=== PATIENT | male | born 1975 | race African-American/Black ===

== ENCOUNTER 2020-01-20 19:42 | Emergency (ER) | payer BC, SELFPAY ==
--- NOTE | ~2020-01-20 | XR_ITS ---
EXAMINATION: XR chest 1V portable DATE: 01/20/2020 20:10 INDICATION: COVID 19. Shortness of breath. TECHNIQUE: frontal view of the chest was obtained. COMPARISON: None FINDINGS: Horizontal band of opacity projecting across the elevated right hemidiaphragm. The bandlike configura tion and associated volume loss favors atelectasis. Additional less well-defined mild airspace opacit ies at the left lung base. No pulmonary edema, pleural effusion or pneumothorax. The cardiomediastina l silhouette is normal. Visualized bones and soft tissues are unremarkable. IMPRESSION: 1. Opacities at the bilateral lung bases which could represent atelectasis or pneumonia. Reviewed, dictated and finalized at location . ING INFORMATICS ANALYST IMPRESSION: 1. Opacities at the bilateral lung bases which could represent atelectasis or p neumonia.
--- NOTE | ~2020-01-20 | CT_ITS ---
EXAMINATION: CTA chest PE protocol DATE: 01/20/2020 20:46 INDICATION: Dyspnea TECHNIQUE: Computed tomography (CT) pulmonary angiogram of the chest was performed with 100 mL Omnipa que-350 intravenous contrast. Additional 3D reconstructions utilizing coronal maximum intensity proje ction (MIP) were performed. Automated exposure control and iterative reconstruction technique were em ployed. The dose-length product was 455.52 mGy-cm. COMPARISON: None FINDINGS: Good contrast opacification of the pulmonary arteries. There is moderate streak artifact from dense c ontrast in the superior vena cava and right atrium. Moderate scattered respiratory motion artifact. T he combination of streak and motion artifact decreases sensitivity in the segmental and more signific antly subsegmental pulmonary arteries and rendered is assessment in many of the subsegmental pulmonar y arteries in the lower lungs essentially nondiagnostic. No definitive pulmonary emboli. There are predominantly bandlike and mild associated groundglass opacities in the dependent and basil ar aspects of both lungs with architectural distortion and bronchovascular crowding concerning corres ponding volume loss consistent with atelectasis/scarring. Although this could be secondary to prior p neumonia or pulmonary infarcts in the regions of consolidation to demonstrate enhancement which would argue against infarct. Mild elevation of the right hemidiaphragm. No pulmonary edema, pleural effusi on or pneumothorax. Mild emphysema at the upper lung zones. Borderline heart size. No pericardial effusion. Thoracic aorta is normal in caliber with no dissectio n. Mild likely reactive bilateral hilar and mediastinal lymphadenopathy. Subtle soft tissue density i nterspersed among the fat in a triangular region of the anterior mediastinum without discrete solid n odule consistent with thymic tissue in the setting of rebound thymic hyperplasia. Visualized upper ab domen and bones are unremarkable. IMPRESSION: 1. No definitive pulmonary emboli. Sensitivity is decreased in some of the segmental and subsegmental pulmonary arteries and essentially nondiagnostic in some of the subsegmental pulmonary arteries at t he lung bases due to combination of moderate streak and moderate respiratory motion artifact. 2. Regions of peripheral and basilar predominant groundglass opacity and consolidation, bladder with bandlike configurations with architectural distortion demonstrating associative volume loss which wou ld favor atelectasis/scarring although this could be superimposed over or secondary to pneumonia or l ess likely pulmonary infarcts. 3. Mild emphysema. 4. Borderline heart size. 5. Mild bilateral hilar and mediastinal lymphadenopathy which is likely reactive. 6. Increased thymic tissue in the anterior mediastinum suggesting rebound thymic hyperplasia. Reviewed, dictated and finalized at location H. CTOR HEDIS IMPRESSION: 1. No definitive pulmonary emboli. Sensitivity is decreased in some of the segm ental and subsegmental pulmonary arteries and essentially nondiagnostic in some of the subsegmental pulmonary arteries at the lung bases due to combination of moderate streak and moderate respiratory motion artifact. 2. Regions of peripheral and basilar predominant groundglass opacity and consol idation, bladder with bandlike configurations with architectural distortion dem onstrating associative volume loss which would favor atelectasis/scarring altho ugh this could be superimposed over or secondary to pneumonia or less likely pu lmonary infarcts. 3. Mild emphysema. 4. Borderline heart size. 5. Mild bilateral hilar and mediastinal lymphadenopathy which is likely reactiv e. 6. Increased thymic tissue in the anterior mediastinum suggesting rebo
[2020-01-20 19:50] VITALS: BP 128/77; PULSE 81; RESP 27; TEMP 36.6; O2SAT 95
--- NOTE | 2020-01-20 19:53 | ECG_ITS ---
Measurements Intervals Edison Rate: 81 P: 40 VT: 141 QRS: -29 QRSD: 98 T: -25 QT: 367 QTc: 428 Interpretive Statements SINUS RHYTHM BORDERLINE R WAVE PROGRESSION, ANTERIOR LEADS NONSPECIFIC T-WAVE ABNORMALITY- ANT/INF LEADS BASELINE ARTIFACT- V1, V5-V6 BORDERLINE ECG Electronically Signed On 01-21-2020 7:22:47 JEWEL DIAMETER GAUGER by Gerber Toth D.O.
--- NOTE | 2020-01-20 19:59 | ED.GENADULT ---
HPI - General Adult General Chief complaint: Upper Respiratory Infection Stated complaint: Covid +, worsening shortness of breath Time Seen by Provider: 01/20/20 19:49 Source: RN notes reviewed History of Present Illness HPI narrative: Patient presents to emergency department from home for shortness of breath. Patient states that he was diagnosed with COVID-19 on 01/10/2020 states he has had progressive shortness of breath that are worsened today. States he has been having a cough he denies any fevers or chills chest pain abdominal pain nausea vomiting or any other symptoms Related Data Allergies Allergy/AdvReac Type Severity Reaction Status Date / Time No Known Allergies Allergy Verified 01/20/20 20:12 Review of Systems Review of Systems: Narrative: Gen.: Denies fevers or chills Eyes: Denies eye pain or visual change ENT: Denies congestion Respiratory: Reports shortness of breath CV: Denies chest pain or palpitations GI: Denies abdominal pain nausea, emesis or diarrhea denies burning, urgency, frequency or hematuria Musculoskeletal: Denies back pain or muscle pain Neuro: Denies numbness, tingling, weakness or focal weakness reports headache Skin: Denies rash Except as documented, all other systems reviewed and negative PMFSH Past Medical History Medical History (Updated 01/20/20 @ 22:45 by Carlos Das DO) Patient denies significant medical history Social History Social History (Updated 01/20/20 @ 20:00 by Carlos Das DO) Smoking status: Never smoker Exam Narrative: Exam Narrative: APPEARANCE: No acute distress, nontoxic, resting in bed EYES: EOMI HEENT: Normocephalic, atraumatic, OMM RESPIRATORY: No respiratory distress Clear to auscultation bilaterally with no rhonchi wheezing or rales. CARDIOVASCULAR: Regular rate and rhythm without murmurs rubs or gallops. ABDOMINAL: Soft, nontender, nondistended, no rebound or guarding MUSCULOSKELETAl: Moves all extremities. No clubbing, cyanosis or edema. NEURO: Awake and alert. Following commands, speech normal, no focal deficits SKIN:: Warm, dry. No rashes lesions or abrasions PSYCHIATRIC: Normal affect/mood, Course Course Emergency Course: Patient states breathing is improved following albuterol patient's oxygen has remained in the upper 90s throughout stay in ED on room air Discussed with patient results of workup and diagnosis. Discussed need for follow-up with primary care, proper use of medication, and reasons to return to the emergency department. Patient understands and agrees to current treatment plan Vital Signs Vital signs: Vital Signs Temperature 97.8 F 01/20/20 19:50 Pulse Rate 81 01/20/20 19:50 Respiratory Rate 27 H 01/20/20 19:50 Blood Pressure 128/77 01/20/20 19:50 Pulse Oximetry 95 01/20/20 19:50 Temperature 97.8 F 01/20/20 19:50 Pulse Rate 73 01/20/20 21:51 Respiratory Rate 20 01/20/20 21:51 Blood Pressure 118/77 01/20/20 21:51 Pulse Oximetry 97 01/20/20 21:51 Medical Decision Making Vital Signs Vital Signs: Vital Signs Temperature 97.8 F 01/20/20 19:50 Pulse Rate 81 01/20/20 19:50 Respiratory Rate 27 H 01/20/20 19:50 Blood Pressure 128/77 01/20/20 19:50 Pulse Oximetry 95 01/20/20 19:50 Temperature 97.8 F 01/20/20 19:50 Pulse Rate 73 01/20/20 21:51 Respiratory Rate 20 01/20/20 21:51 Blood Pressure 118/77 01/20/20 21:51 Pulse Oximetry 97 01/20/20 21:51 Lab Data Result diagrams: 01/20/20 19:57 01/20/20 19:59 Labs: Lab Results 01/20/20 01/20/20 01/20/20 Range/Units 19:56 19:57 19:57 WBC 5.9 (4.5-10.0) K/mm3 RBC 4.78 (4.6-6.20) M/mm3 Hgb 14.3 (14.0-18.0) g/dL Hct 42.8 (42.0-52.0) % MCV 89.5 (80-100) fl MCH 29.9 (26-34) pg MCHC 33.4 (32-36) g/dl RDW 11.4 L (11.5-14.5) % Plt Count 285 (150-375) k/mm3 MPV 9.8 (7.4-10.4) fl Immature Gran % (Auto) Not Reportable
[2020-01-20 20:09] LABS: Hematocrit 42.8 % (42.0-52.0); Hemoglobin 14.3 g/dL (14.0-18.0); Mean Corpuscular HGB Conc 33.4 g/dl (32-36); Mean Corpuscular Hemoglobin 29.9 pg (26-34); Mean Corpuscular Volume 89.5 fl (80-100); Mean Platelet Volume 9.8 fl (7.4-10.4); Platelet Count Result 285 k/mm3 (150-375); Red Blood Count 4.78 M/mm3 (4.6-6.20); Red Cell Distribution Width 11.4 % (11.5-14.5); White Blood Count 5.9 K/mm3 (4.5-10.0)
[2020-01-20] MEDS: ALBUTEROL SULFATE (*SP) AEROSOL 1 PUFF 2 PUFF INHALATION (20:14)
[2020-01-20 20:16] VITALS: BP 123/92; PULSE 85; PULSE 86; RESP 22; O2SAT 95
[2020-01-20 20:21] LABS: Lactic Acid Reflex 1.4 mmol/L (0.7-2.1)
[2020-01-20 20:22] LABS: Anion Gap 10 mmol/L (8-16); Blood Urea Nitrogen 15 mg/dL (9-20); Calcium 9.7 mg/dL (8.4-10.2); Carbon Dioxide 33 mmol/L (22-30); Chloride 95 mmol/L (98-107); Estimated Glomerular Filt Rate > 60; Glucose 131 mg/dL (75-110); Potassium 3.9 mmol/L (3.4-5.0); Sodium 138 mmol/L (137-145)
[2020-01-20 20:23] LABS: D Dimer 1.41 ug/mL (<0.48)
[2020-01-20 20:31] LABS: Band Neutrophils Percent 1 % (0-6); Eosinophils Absolute Manual 0.11 K/mm3 (0.02-0.5); Eosinophils Percent Manual 2 % (0-4); Lymphocytes Absolute Manual 2.18 K/mm3 (1.1-4.5); Monocytes Absolute Manual 0.76 K/mm3 (0.1-0.90); Monocytes Percent Manual 13 % (3-9); Neutrophils Absolute Manual 2.83 K/mm3 (1.3-6.7); Neutrophils Percent Manual 47 % (46-73); Platelet Estimate Adequate (Adequate); Total Cells Counted 100
[2020-01-20 21:51] VITALS: BP 118/77; PULSE 73; RESP 20; O2SAT 97
[2020-01-20] MEDS: AZITHROMYCIN 250 MG TABLET 500 MG PO (22:03)
--- NOTE | 2020-01-20 22:09 | PC.NURSE ---
this rn spoke to donny, pts , and updated her on pt status.
[2020-01-20 22:58] VITALS: BP 124/81; PULSE 77; RESP 16; O2SAT 97
== END 2020-01-20 23:00 | disposition home or self-care (01) ==
PROVIDERS: Emergency Provider Emergency Medicine
DX: U07.1 COVID-19 (principal); R94.31 Abnormal electrocardiogram [ECG] [EKG]; R91.8 Other nonspecific abnormal finding of lung field; J43.9 Emphysema, unspecified
CPT/HCPCS: 36415; 71045; 71275; 80048; 83605; 85025; 85380; 87040; 93005; 94640; 96374; 99284; A9270; J0131; Q9967

== ENCOUNTER 2022-08-17 09:51 | Outpatient (CLI) | payer BC, SELFPAY | END 2022-08-17 09:52 | disposition home or self-care (01) | LOC: ANHAUDIO 09:52 | PROVIDERS: PCP Family Medicine Adolescent Medicine; Visit Provider Emergency Medicine | DX: Z01.10 Encounter for examination of ears and hearing without abnormal findings (principal) | CPT/HCPCS: 92552; 92556; 92567 ==

== ENCOUNTER 2023-12-28 10:49 | Outpatient (CLI) | payer BC, SELFPAY ==
--- NOTE | ~2023-12-28 | US_ITS ---
Limited Abdominal Sonogram: Real-time sonographic imaging of the right upper quadrant was performed. Clinical History: Elevated liver enzymes Findings: The liver appears normal with no evidence of mass lesion or bile duct dilatation. Main por laura vein demonstrates normal direction of flow. The gallbladder is well distended, and appears normal with no evidence of gallstone or wall thickening. The common bile duct measures 3 mm. The visualize d pancreas, aorta, and IVC are unremarkable. Impression: No significant abnormality seen. Reviewed, dictated and finalized at location M. Impression: No significant abnormality seen.
== END 2023-12-28 10:50 | disposition home or self-care (01) ==
PROVIDERS: PCP Emergency Medicine; Visit Provider Emergency Medicine
DX: R74.8 Abnormal levels of other serum enzymes (principal)
CPT/HCPCS: 76705

== ENCOUNTER 2024-09-03 14:27 | Outpatient (CLI) | payer BC, SELFPAY ==
--- NOTE | ~2024-09-03 | XR_ITS ---
Cervical Spine: AP, lateral, open-mouth views Clinical History: Pain Findings: The normal lordotic curve is maintained. The vertebral bodies and posterior elements appea r intact. There is mild degenerative disc narrowing at C5-C6 and C6-C7. There is mild facet arthropat hy in the cervical spine. Pre-vertebral soft tissues are unremarkable. Impression: Mild degenerative spondylitic changes, as above. Reviewed, dictated and finalized at location . Impression: Mild degenerative spondylitic changes, as above.
--- OUTSIDE RECORDS SUMMARY | 2024-09-03 14:33 | XMS_ITS | Clinical Summary ---
Author Organization [facility] Address [address] [place] [address] Phone Care Team Providers Care Stock Speculator Name Role Phone Thom Romero MD Unavailable Allergies No known active allergies Medications terbinafine (LamISIL) 1 % Cream Apply 2 times daily. 30 g 1 Active Additional Information Patient not taking.Reported on 07/02/2021 Cyanocobalamin (VITAMIN B12 PO) Take by mouth daily. Active KRILL OIL PO Take by mouth daily. Active Active Problems No known active problems Immunizations Immunization Administration Dates Next Due TDAP Vaccine 06/09/2021,05/07/2020 Family History Medical History Relation Name Comments No Known Problems Daughter Heart Disease Father Other-comment Father Heart preblems Rheumatoid Arthritis Father No Known Problems Half-Brother 1 No Known Problems Half-Brother 2 No Known Problems Half-Brother 3 No Known Problems Half-Brother 4 No Known Problems Half-Brother 5 No Known Problems Half-Brother 6 Rheumatoid Arthritis Half-Brother 7 Lupus Half-Sister 1 No Known Problems Half-Sister 2 Neuropathy Maternal Grandfather Chronic Obstructive Pulmonary Disease Maternal Grandmo ther Heart Disease Maternal Grandmother Breast Cancer Mother Chronic Obstructive Pulmonary Disease Mother Heart Attack Paternal Grandfather Heart Attack Paternal Grandmother Rheumatoid Arthritis Paternal Grandmother No Known Problems Son 1 No Known Problems Son 2 Relation Name Status Comments Daughter Alive Father Alive Half-Brother 1 Alive Half-Brother 2 Alive Half-Brother 3 Alive Half-Brother 4 Alive Half-Brother 5 Alive Half-Brother 6 Alive Half-Brother 7 Alive Half-Sister 1 Alive Half-Sister 2 Alive Maternal Grandfather Maternal Grandmother Mother Alive Paternal Grandfather Paternal Grandmother Alive Son 1 Alive Son 2 Alive Social History Tobacco Use Types Packs/Day Years Used Date Smoking Tobacco: Former Cigarettes 0.5 20.3 1 993 - 07/02/2012 Smokeless Tobacco: Never Tobacco Cessation:Counseling Given: No Alcohol Use Standard Drinks/Week Comments Yes 0 (1 standard drink = 0.6 oz pur e alcohol) weekends PHQ-2 Answer Date Recorded Total Score - Questions 1-9 0 05/29 Sexually Active Control Partners Comments Yes Female Sex and Gender Information Value Date Recorded Sex Assigned at Not on file Legal 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 Gender Identity Not on file Sexual Orientation Not on file 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 Not on file Not on file Last Filed Vital Signs Vital Sign Reading Time Taken Comments Blood Pressure 133/73 08/17/2021 5:40 PM CDT Pulse 67 08/17/2021 5:40 PM CDT Temperature 36.6 C (97.8 F) 08/17/2021 5:40 PM CDT Respiratory Rate 20 08/17/2021 5:40 PM CDT Oxygen Saturation 98% 08/17/2021 5:40 PM CDT Inhaled Oxygen Concentration - - Weight 91.2 kg (201 lb) 08/17/2021 5:40 PM CDT Height 167.6 cm (5' 6) 08/17/2021 5:40 PM CDT Body Mass Index 32.44 08/17/2021 5:40 PM CDT Plan of Treatment Health Maintenance Due Date Last Done Comments Hepatitis C Virus (HCV) Screening 1976 Hepatitis B Immunization (1 of + 3-dose series) 1995 SARS-COV-2 Immunization ( season) 2023 06/12/2020, 05/15/2020 Influenza Immunization (Season Ended) 2024 Colonoscopy 07/17/2031 07/16/2021, 06/28, 07/16/2021, Additional history exists Colorectal Cancer Screening 07/17/2031 Respiratory Syncytial Virus (RSV) Immunization (Adult) (1 - 1-dose 75+ series) 2051 DTaP/Tdap/Td Immunization Discontinued 06/09/2021, 11/2020 Human Papillomavirus (HPV) Immunization Aged Out No longer eligible based on patient's age to complete this topic Meningococcal Immunization (ACWY) Aged Out No longer eligible based on patient's age to complete this topic Pneumococcal Immunization Combined Aged Out No longer eligible based on patient's age to complete this topic Rotavirus Immunization Aged Out No lo nger eligible based on patient's age to complete this topic Insurance [facility] [employer] [place] [id number] Care Teams Stock Speculator Relationship Specialty Start Date End Date Thom Romero MD [address] [place] [address] Consulting Physician Colon and Rectal Surgery 07/02/21
--- OUTSIDE RECORDS SUMMARY | 2024-09-03 14:33 | XMS_ITS | Patient Health Record ---
Author Organization [facility] Address [address] [place] [address] Care Team Providers Care Lead Loader Name Role Phone Isai Barney Primary Care Provider [phone] Reason For Referral No Information Immunizations Vaccine Route Administration Date Status Comme nts COVID-19 Moderna 1ST IM Intramuscular 05/15/2020 Administe red COVID-19 Moderna 2nd IM Intramuscular 06/12/2020 Administe red Plan Of Treatment No Information Insurance Providers Payer Name Payer Address Payer Phone Subscriber Number Group Number Insured Name Patient Relationship to Insured Coverage Start Date Coverage End Date [facility] [place] [address] [place] [address] [phone] [id number] Isai Kay Self - patient is the insured 1
--- OUTSIDE RECORDS SUMMARY | 2024-09-03 14:33 | XMS_ITS | Clinical Summary ---
Author Organization [facility] Address [address] [facility] [facility] [place] [address] Care Team Providers Care Emergency Room Doctor Name Role Phone Austin Arreola MD Primary Care Provider [phone] Source Comments [facility],non-owned Affiliates and Associated Physician Practices is amultiple site organization consisting of ambulatory clinics and hospital sitesin [place], [place], [place] and [place]. This disclosure is being madepursuant to the Care Everywhere program and may not contain all information available regarding this patient. Last updated 11/18/17.[employer] [facility] Allergies No known active allergies Medications * Be aware that medications may not be up to date on this document. Alwaysverify current medications with the patient. 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 Gender Identity Not on file Sexual Orientation Not on file Last Filed Vital Signs Vital Sign Reading Time Taken Comments Blood Pressure 119/89 11/04/2022 9:53 AM CDT Pulse 56 11/04/2022 9:53 AM CDT Temperature 36.7 C (98 F) 11/04/2022 9:53 AM CDT Respiratory Rate 20 12/30/2010 5:50 AM CDT Oxygen Saturation 100% 11/04/2022 9:53 AM CDT Inhaled Oxygen Concentration - - Weight 83 kg (183 lb) 08/24/2013 3:06 PM CDT Height 167.6 cm (5' 6) 12/30/2010 4:08 AM CDT Body Mass Index 29.54 12/30/2010 4:08 AM CDT Plan of Treatment Health Maintenance Due Date Last Done Comments COLOGUARD (AGES 45-75) - COL ON CA SCREENING 1976 COLON MONITORING 1976 COLONOSCOPY - COLON CA SCREENING 1976 CT COLONOGRAPHY - COLON CA SCREENING 1976 Colorectal Cancer Screening 1976 FIT - COLON CA SCREENING 1976 FLEX SIG - COLON CA SCREENING 1976 HEPATITIS C SCREENING 04/19/1994 DTAP/TDAP/TD VACCINES (1 - Tdap) 1995 HEPATITIS B VACCINE (1 of 3 - 19+ 3-dose series) 1995 PNEUMOCOCCAL VACCINE (1 of 2 - PCV) 1995 LIPID TESTING 07/20/2018 07/20/2013 COVID-19 VACCINE (3 - 2023-2 5 season) 2023 06/12/2020, 05/15/2020 DEPRESSION SCREENING 02/29/2024 INFLUENZA VACCINE (Season Ended) 2024 ZOSTER VACCINE (1 of 2) 2026 HIV SCREENING Completed 07/20/2013, 11/25/2008 HIB VACCINE Aged Out No longer eligi ble based on patient's age to complete this topic HPV VACCINE Aged Out No longer eligi ble based on patient's age to complete this topic MENINGOCOCCAL (Group B) VACCINE SHARED DECISION-MAKING Aged Out No longer eligible based on patient's age to complete this topic MENINGOCOCCAL GROUPS A/C/Y/W VACCINE Aged Out No longer eligible b ased on patient's age to complete this topic Procedures Procedure Name Priority Date/Time Associated Diagnosis Comments LIPID PROFILE Timed 07/20/2013 10:49 AM CDT HIV-1 HIV-2 ANTIGEN/ANTIBODY Timed 07/20/2013 10:49 AM CDT from Last 3 Months or Most Recently Relevant to Health Maintenance Results * HIV-1 HIV-2 ANTIGEN/ANTIBODY (07/20/2013 10:49 AM CDT) HIV Antigen/Antibod y 1 & 2 Non-reacti ve Non-react kourtney [facility] Comment: Neither HIV-1 p24 Antigen nor HIV-1/HIV-2 Antibodies are detected. Blood specimen (specimen) BLOOD SPECIMEN / Unknown 07/20/2013 10:49 AM CDT 07/20/2013 12:19 PM CDT Ubaldo Aparicio MD LAB - HEMATOLOGY ORDERAB LES Final Result Performing Organization Address [facility] [address]/ZIP Co de Phone Number [address] [phone] * LIPID PROFILE (07/20/2013 10:49 AM CDT) Cholesterol Total 136 <200 mg/dL [facility] HDL 53 >40 mg/dL [facility] Comment: ATP III Classification of HDL Cholesterol: <40 mg/dL: Considered a major risk factor. >60 mg/dL: Considered a negative risk factor. LDL Calculated 74 <100 mg/dL [facility] Comment: ATP III Classification of LDL Cholesterol: <100 mg/dL: Optimal 100 - 129 mg/dL: Near Optimal/Above Optimal 130 - 159 mg/dL: Borderline High 160 - 189 mg/dL: High >190 mg/dL: Very High Triglycerides 47 <150 mg/dL [facility] Comment: ATP III Classification of Triglycerides: <150 mg/dL: Normal 150 - 199 mg/dL: Borderline High 200 - 400 mg/dL: High >500 mg/dL: Very High Blood specimen (specimen) BLOOD SPECIMEN / Unknown 07/20/2013 10:49 AM CDT 07/20/2013 12:07 PM CDT Ubaldo Aparicio MD LAB - CHEMISTRY ORDERABL ES Final Result Performing Organization Address [facility] [address]/ZIP Co de Phone Number [address] [phone] from Last 3 Months or Most Recently Relevant to Health Maintenance Insurance [employer] Care Teams Emergency Room Doctor Relationship Specialty Start Date End Date Austin Arreola MD [address] [place] [id number] PCP - General Family Medicine 09/24/22
--- OUTSIDE RECORDS SUMMARY | 2024-09-03 14:33 | XMS_ITS | Clinical Summary ---
Author Organization [facility] Address [facility] [place] [address] Care Team Providers Care Database Programmer Name Role Phone Tulio Corea Primary Care Provider + Allergies No known active allergies Medications terbinafine 1 % creamIndication s:Tinea corporis Apply topically 2 (two) times daily. 36 g 1 9 Active Active Problems Problem Noted Date Diagnosed Date Fatigue, unspecified type 03/01/2018 Acute bilateral low back pain without sciatica 0 03/01/2018 Tinea corporis 03/01/2018 Skin tag of perineum in male 03/01/2018 Bilateral hand swelling 03/01/2018 Family History Medical History Relation Comments Heart Disease Father COPD Mother Cancer Mother breast Heart Disease Paternal Grandfather Diabetes Paternal Grandmother Relation Status Comments Father Mother Paternal Grandfather Paternal Grandmother Social History Tobacco Use Types Packs/Day Years Used Date Smoking Tobacco: Former Cigarettes 0.5 15 0 03/01/1997 - 03/01/2012 Smokeless Tobacco: Never Alcohol Use Standard Drinks/Week Comments Yes 0 (1 standard drink = 0.6 oz pur e alcohol) 3-4 beers a weekend AUDIT-C Answer Date Recorded Frequency of Alcohol Consumption 2-3 times a wee k 03/01/2018 Average Number of Drinks 1 or 2 019 Frequency of Binge Drinking Not on file 03/2018 PHQ-2 Answer Date Recorded PHQ-2 Score 2 05/29/2018 Sex and Gender Information Value Date Recorded Sex Assigned at Male 03/01/2018 12:15 PM 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 Legal Sex Male 11:23 AM 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 Gender Identity Male 03/01/2018 12:15 PM 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 Sexual Orientation Straight 03/01/2018 12 :15 PM 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 Last Filed Vital Signs Vital Sign Reading Time Taken Comments Blood Pressure 120/76 03/01/2018 12:03 PM 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 Pulse 56 03/01/2018 12:03 PM 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 Temperature 36.3 C (97.4 F) 03/01/2018 12:03 PM 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 Respiratory Rate 16 03/01/2018 12:03 PM 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 Oxygen Saturation 98% 03/01/2018 12:03 PM 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 Inhaled Oxygen Concentration - - Weight 92.6 kg (204 lb 3 oz) 03/01/2018 12:03 PM 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 Height 167.6 cm (5' 6) 03/01/2018 12:03 PM 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 Body Mass Index 32.96 03/01/2018 12:03 PM 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 Plan of Treatment Health Maintenance Due Date Last Done Comments Colorectal Cancer Screening Colonoscopy (10 Years) 1976 Annual Physical 1979 Hepatitis C 1994 DTaP, Tdap and Td Vaccines ( 1 - Tdap) 1995 Hepatitis B Vaccines (1 of 3 - 19+ 3-dose series) 1995 COVID-19 Vaccine ( - 2023-2 5 season) 2023 Meningococcal B Vaccine Aged Out No l onger eligible based on patient's age to complete this topic Meningococcal Vaccine Aged Out No ming juana eligible based on patient's age to complete this topic Pneumococcal Vaccine: Pediat rics (0 to 5 Years) and At-Risk Patients (6 to 49 Years) Aged Out No longer eligible b ased on patient's age to complete this topic RSV Immunizations Under 20 Months Aged Out No longer eligible based on patient's age to complete this topic Insurance [facility] Care Teams Database Programmer Relationship Specialty Start Date End Date Tulio Corea DO [address] [place] [id number] PCP - General FAMILY PRACTICE 03/01/18
--- OUTSIDE RECORDS SUMMARY | 2024-09-03 14:33 | XMS_ITS | Continuity of Care Document ---
Author Organization [facility] Address [address] [place] [address] Phone Care Team Providers Care Jamb Cutter Name Role Phone Rony De La Garza MD Unavailable Unavailable Allergies, Adverse Reactions, Alerts Substance Reaction Status Criticality No Known Allergies Active No Inform ation Medications Medication Instructions Dosage Effective Dates (start - stop) Status Comments loratadine 10 mg tablet take 1 tablet by oral route every day 10 MG - Active triamcinolone acetonide 0.1 % topical cream apply by topical route 2 times every day a thin layer to the affected area(s), avoid face and groin - Active Procedures Procedure Date OFFICE/OUTPATIENT VISIT, [facility] Alcohol and/or drug screening 5 Advance Directives Directive Yes / No Effective Date File Name No Information Encounters Encounter Description Practice Location Reason(s) For Visit Diagnoses Date Provider Providers Copied on Encounter OFFICE/OUTPAT IENT VISIT, [facility] , [address], [place], [place], [id number], tel:[phone] Urgent Care rash (chief complaint) RashScreening for alcoholism Frederic Uribe. [address], [place], [place], [id number], [place]. tel:[phone] Referring Provider: Rony De La Garza, [address], [place], [address] . tel:[phone] Family History Family Member Type Diagnosis Age At Onset No Information Payers Payer name Insurance type Covered libertarian ID Authoriza tion(s) [employer] [place] [id number] Social History Type Description Quantity Date Captured Comments Alcohol Use Details Unknown Caffeine Use Details Unknown Tobacco Use Status No Information Smoking Status No Information Sex Male Vital Signs Date / Time: Height Weight BMI Pulse Rate Blood Pressure Temperature Respiratory Rate Body Surface Area Head Circumference Head Circ. Percentile Wt./Matt. Percentile BMI percentile Pulse Ox Inhaled Ox 12:04 PM 66.00 in 82.191 kg (181.20 lbs) 29.2 5 kg/m eter (2) 58 /min 130/83 mm[Hg] 98.10 F 18 /min 98 % Chief Complaint And Reason For Visit From encounter dated '09/03/2014 11:45'. rash (chief complaint). Description: Notes scattered slightly pruritic rash in limited areas of BUEand BLE, left side worse than right. No vesicles, ulceration, discharge, weeping, matting or crusting, warmth or redness, streaking. No known exposure but cuts two yards with his son. None on face, tr unk, back, abd, groin. Doing well otherwise. Reason For Referral Reason For Referral No Information History Of Present Illness Encounter Date Complaint History Of Prese nt Illness rash Notes scattered slightly pruritic rash in limited areas of BUE and BLE, left side worse than right. No vesicles, ulceration, discharge, weeping, matting or crusting, warmth or redness, streaking. No known exposure but cuts two yards with his son. None on face, trunk, back, abd, groin. Doing well otherwise. Functional Status Date Functional Assessmen t Pain Score 0/10 Instructions Date Instruction Additional Infor mation No Information Assessments Type Assessment Date assessment Rash impression TCA cream and Lorata dine Rx. Infection precautions, f/u with PCP, return/call as needed. assessment Screening for alcoholism 2014 Mental Status Date Cognitive Assessment Orientation - Frohna ed to time, place, person, situation. Patient Care Teams Name Effective Dates (start - stop) Status Members No Information
--- OUTSIDE RECORDS SUMMARY | 2024-09-03 14:33 | XMS_ITS | Data Portability ---
Author Organization [employer], [facility] Address [address] [address] Care Team Providers Care Cotton Jammer Name Role Phone Unavailable Primary Care Provider Unavailabl e Assessment No assessment recorded. Plan of Treatment Reminders Order Date Submit Date Provider Last Modified By Organization Details Last Modified Time Details Appointments None recorded. Lab None recorded. Referral None recorded. Procedures None recorded. Surgeries None recorded. Imaging XR, shoulder 2015 016 Not available 6 04:28:20 US, upper extremity, nonvascular 2015 016 Not available 6 04:28:22 MR, arthrogram, shoulder - labrum tear 2015 016 Not available 6 04:28:18 Medication Orders None recorded. Patient TargetsNo targets recorded. Patient Instructions Encounter Date Encounter Id Patient Instructions Last Modified By Organization Details Last Modified Time 12/17/2015 [id number] shoulder pain: care instructions [email or web address] Not available 01/06/2016 14:39:25 Reason for Referral None Reported. Results Created Date Observation Date Name Description Value Unit Range Abnormal Flag Note LastModifiedBy Organization Detail LastModifiedTime 11/07/19 16 11/06/2015 MR, arthr marion morgan [place] No observ ation record ed. [email or web address] Not Available 2015 12:35:20 Result Notes None recorded. Medical Equipment None Reported. Allergies No known drug allergies Medications Name Sig Start Date Stop Date Status Note LastModified by Organization Details LastModified Time hydrocodone 5 mg-acetaminophe n 325 mg tablet active Not Available Not Availa ble Not Available clindamycin HCl 150 mg capsule active Not Available Not Availab le Not Available amoxicillin 875 mg tablet active Not Available Not Available No t Available cephalexin 500 mg capsule active Not Available Not Available N ot Available etodolac 400 mg tablet active Not Available Not Available Not Available chlorhexidine gluconate 0.12 % mouthwash active Not Available Not Available Not Available Vitals Date Recorded Body height Provider Name an d Address Organization Details Last Updated DateTime 09/20/2016 167.64 cm [facility] [email or web address] [facility] 09/20/2016 14:21:57 Date Recorded Body height Body weight Body mass index (BMI) Heart rate Systolic And Diastolic Provider Name and Address Organization Details Last Updated DateTime 10/29/2015 167.64 cm 07180.55 g 30.7 kg/m2 59 /min 118/73 mm[Hg] José Antonio [facility], [facility] 10/29/2015 12:27:59 Date Recorded Body height Body weight Body mass index (BMI) Heart rate Systolic And Diastolic Provider Name and Address Organization Details Last Updated DateTime 11/13/2015 167.64 cm 25540.55 g 30.7 kg/m2 57 /min 133/73 mm[Hg] Kevinran Pankaj [facility], [facility] 11/13/2015 12:03:46 Date Recorded Body height Heart rate Systolic And Diastolic Provider Name and Address Organization Details Last Updated DateTime 12/17/2015 167.64 cm 58 /min 116/78 mm[Hg] Julienne [facility]ail [email or web address] 12/17/2015 12:10:25 Social History None recorded. Functional Status None recorded. Mental Status None recorded. Family History Relationship Description Onset Age of this Age Resolved Age Notes LastModified by Organization Details LastModified Time Brother Arthritis [email or web address] Not available 10/29/2015 12:28:18 Medical History Condition Response HIV or AIDS N Coronary Artery Disease N Gout N Kidney Stones N Hyperthyroidism N Hernia N Head Trauma/Injury N Hypothyroidism N Lung Disease N Blood Clots N COPD N Depression N Pacemaker N Anxiety Disorder N Arthritis N Cancer N Stroke N Leg or Foot Ulcers N Neck Injury N High Cholesterol N Liver Disease N Rheumatoid Arthritis N Fibromyalgia N Headaches N Kidney Disease N Heart Problems N Migraines N Thyroid Problems N Anemia N Multiple Sclerosis N Ulcers N Heart Attack ([place]) N Diabetes N Bleeding Disorder N Seizures/Epilepsy N Tuberculosis N Urinary Tract Infection N Back Problems N Diverticulitis N Asthma N Lupus N Peripheral Vascular Disease N Sleep Disorder N GERD/Reflux N Hepatitis N Aneurysm N Heart Disease N Pulmonary Embolism N Hypertension N Osteoporosis N Past Encounters Encounter ID Performer Location Encounter Start Date Encounter Closed Date Diagnosis/Indication Diagnosis SNOMED-CT Code Diagnosis ICD10 Code Diagnosis Note [id number] Henry Walker MD [facility] [address] [place] [address] 10/29/2015 11:59:18 10/29/2015 15:51:57 Pain of shoulder region 89878353 M25.511 [id number] Henry Walker MD [facility] [address] [place] [address] 11/13/2015 11:48:53 11/13/2015 15:51:50 [id number] Henry Walker MD [facility] [address] [place] [address] 12/17/2015 11:57:55 12/17/2015 13:24:35 Pain of shoulder region [id number] M25.511 [id number] Henry Walker MD [facility] [address] [place] [address] 09/20/2016 14:02:57 09/20/2016 15:48:33 Health Concerns Section Related Observation LastModified by Organization Detai ls LastModified Time None Recorded Concern Status LastModified by Organization Details LastModified Time None Recorded Advance Directives Directive None Recorded Payers Insurance Date Sequence Insurance Name Policy Number Policy Quispe Covered Member ID Quispe Member ID Guarantor Name 10/26/2016 1 [employer] [id number] Isai Romo [id number] Isai Romo
--- OUTSIDE RECORDS SUMMARY | 2024-09-03 14:33 | XMS_ITS | Clinical Summary ---
Author Organization [facility] [address] [place] Address [address] [place] [address] Care Team Providers Care Jewel Hole Driller Name Role Phone Austin Arreola MD Primary Care Provider [phone] Allergies No known active allergies Medications ergocalciferol (VITAMIN D) 50,000 unit capsule 3 Active ketoconazole (NIZORAL) 2 % cream APPLY TOPICALLY TO THE AFFECTED AREA DAILY 3 Active terbinafine (LamISIL) 1 % cream Apply topically 2 (two) times a day 9 Active Active Problems Problem Noted Date Diagnosed Date Acute bilateral low back pain without sciatica 0 03/01/2018 Bilateral hand swelling 03/01/2018 Fatigue 03/01/2018 Skin tag of perineum in male 03/01/2018 Tinea corporis 03/01/2018 Medical History Medical History Date Comments Personal history of diseases of skin or subcutaneous tissue History of eczema - (Added b y TW Conv) Family History Medical History Relation Name Comments Diabetes Other Diabetes [facility] - (Added by TW Conv) Relation Name Status Comments Other Social History Tobacco Use Types Packs/Day Years Used Date Smoking Tobacco: Never Tobacco Cessation:Counseling Given: Not Answered Sex and Gender Information Value Date Recorded Sex Assigned at Not on file Legal Sex Male 8: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 Gender Identity Male 03/28/2023 11:44 AM [employer]ING [employer]W LEADER Sexual Orientation Straight 03/28/2023 11 :44 AM [employer]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 Obstetrics History Last Filed Vital Signs Vital Sign Reading Time Taken Comments Blood Pressure 136/92 10/07/2022 2:49 PM CDT Pulse 76 10/07/2022 2:49 PM CDT Temperature - - Respiratory Rate - - Oxygen Saturation - - Inhaled Oxygen Concentration - - Weight 80.7 kg (178 lb) 03/29/2023 10:52 AM [employer]UING CREW LEADER Height 167.6 cm (5' 6) 03/29/2023 10:52 AM [employer]UING CREW LEADER Body Mass Index 28.73 03/29/2023 10:52 AM [employer]ING CREW LEADER Plan of Treatment Health Maintenance Due Date Last Done Comments Colon Cancer Screening-Colonoscopy 1976 Depression Screening 1976 Hepatitis C Screening 1976 Prostate Cancer Screening-PSA 1976 Hepatitis B Screening 1994 Regular Well Visit/Exam 18-64 1994 Covid-19 Vaccine ( - 2023-2 5 season) 2023 06/12/2020, 05/15/2020 Influenza Vaccine (Season Ended) 2024 DTaP/Tdap/Td Vaccine (3 - Td or Tdap) 06/10/2031 06/09/2021, 05/07/2020 Pneumococcal vaccine <65 Aged Out No longer eligible based on patient's age to complete this topic Insurance [employer] [place] [employer] [place] Care Teams Jewel Hole Driller Relationship Specialty Start Date End Date Austin Arreola MD PCP - General Emergency Medicine 10/07/22
--- OUTSIDE RECORDS SUMMARY | 2024-09-03 14:33 | XMS_ITS | Referral Summary ---
Author Organization [facility] [address] Address [address] [place] [address] Care Team Providers Care Financial Rep Name Role Phone Austin Arreola MD Primary Care Provider [phone] Allergies No known active allergies Medications ergocalciferol [...] perineum in male 03/01/2018 Tinea corporis 03/01/2018 Social History Tobacco Use Types Packs/Day Years Used Date Smoking Tobacco: Never Tobacco Cessation:Counseling Given: Not Answered Sex and Gender Information Value Date Recorded Sex Assigned at Not on file Legal Sex Male 8:04 PM BONUS CLERK Gender Identity Male 03/28/2023 11:44 AM BONUS CLERK Sexual Orientation Straight 03/28/2023 11 :44 AM BONUS CLERK Last Filed Vital Signs Vital Sign Reading Time Taken Comments Blood Pressure 136/92 10/07/2022 2:49 PM CDT Pulse 76 10/07/2022 2:49 PM CDT Temperature - - Respiratory Rate - - Oxygen Saturation - - Inhaled Oxygen Concentration - - Weight 80.7 kg (178 lb) 03/29/2023 10:52 AM BONUS CLERK Height 167.6 cm (5' 6) 03/29/2023 10:52 AM BONUS CLERK Body Mass Index 28.73 03/29/2023 10:52 AM BONUS CLERK Plan of Treatment Not on file Insurance [employer] [place] [employer] [place] Care Teams Financial Rep Relationship Specialty Start Date End Date Austin Arreola MD PCP - General Emergency Medicine 10/07/22
== END 2024-09-03 14:28 | disposition home or self-care (01) ==
PROVIDERS: PCP Emergency Medicine; Visit Provider Emergency Medicine
DX: M47.812 Spondylosis without myelopathy or radiculopathy, cervical region (principal)
CPT/HCPCS: 72040